=== PATIENT | male | born 1980 ===

== ENCOUNTER 2023-09-20 11:08 | Day surgery (SDC) | payer BC, OTHER ==
[2023-09-19 10:24] VITALS: BMI 29.7
[2023-09-20] MEDS ORDERED: Lidocaine 1% MPF 2 ML VIAL ONE (11:54)
[2023-09-20] MEDS ORDERED: Oxymetazoline HCl 0.05% (30 ML BOT) ONE ×2 (11:54→12:08)
[2023-09-20] MEDS ORDERED: EPINEPHrine 1 MG/ML VIAL ONE (12:08)
[2023-09-20] MEDS ORDERED: Lidocaine 1% (PF) 30 ML VIAL ONE (12:09)
[2023-09-20] MEDS ORDERED: PROPOFOL 20 ML ONE (12:16)
[2023-09-20] MEDS ORDERED: fentaNYL PF 100 MCG/2 ML SYRINGE ONE (12:16)
[2023-09-20] MEDS ORDERED: Lidocaine 1% PF 5 ML VIAL ONE (12:16)
[2023-09-20] MEDS ORDERED: SUCCINYLCHOLINE/SOD CL,ISO/PF 200 MG/10 ML SYRINGE FS ONE (12:36)
[2023-09-20] MEDS ORDERED: Ondansetron PF 4 MG/2 ML Vial ONE (13:01)
[2023-09-20] MEDS ORDERED: Dexamethasone 4 mg/ml Vial ONE (13:01)
[2023-09-20] MEDS ORDERED: fentaNYL 50 mcg/mL 1 mL Vial ONE ×2 (13:57→14:06)
[2023-09-20] MEDS ORDERED: Hydrocodone-Acetamin 15 ML UDCUP ONE (15:10)
== END 2023-09-20 15:44 | disposition home or self-care (01) ==
LOC: SDC 11:08
PROVIDERS: ATTEND Specialist
PROC: 09BM4ZZ Excision of Nasal Septum, Percutaneous Endoscopic Approach (ICD-10-PCS; principal; 2023-09-20)
PROC: 09TL4ZZ Resection of Nasal Turbinate, Percutaneous Endoscopic Approach (ICD-10-PCS; principal; 2023-09-20)
DX: J34.2 Deviated nasal septum (principal); J34.3 Hypertrophy of nasal turbinates; J35.01 Chronic tonsillitis; Z88.0 Allergy status to penicillin; Z79.899 Other long term (current) drug therapy
CPT/HCPCS: J0171; J1100; J2001; J2405; J2704; J3010